=== PATIENT | female | born 1990 | race Hispanic/Latino ===

== ENCOUNTER 2020-05-06 11:18 | Emergency (ER) | payer SELFPAY ==
[~2020-05-06] VITALS: Ht 149.9 cm; Wt 52.5 kg
[2020-05-06] MEDS ORDERED: PREDNISONE20 MG PO (12:38)
[2020-05-06] MEDS ORDERED: VALACYCLOVIR HCL1 GM PO (12:38)
[2020-05-06 13:04] VITALS: BP 139/89
== END 2020-05-06 13:40 | disposition home or self-care (01) | DRG 74 ==
LOC: ED 11:18
DX: G51.0 Bell's palsy (principal)